=== PATIENT | female | born 1975 | race Caucasian/White ===

== ENCOUNTER 2023-08-29 14:25 | Outpatient (CLI) | payer BC | END 2023-08-29 14:26 | disposition home or self-care (01) | LOC: BICMAMMO 14:25 | PROVIDERS: ATTEND Family Medicine | DX: N63.14 Unspecified lump in the right breast, lower inner quadrant (principal) | CPT/HCPCS: 76642; 77066; G0279 ==

== ENCOUNTER 2023-12-09 13:04 | Outpatient (CLI) | payer BC ==
[2023-12-09 14:19] LABS: #Basophils Less than 0.03 10x3/uL (0.0-0.2); %Basophils 0.2 % (0.0-1.0); %Eosinophils 2.3 % (0.0-10.0); %Lymphocytes 32.6 % (21.0-51.0); %Monocytes 6.7 % (0.0-10.0); %Neutrophils 57.9 % (42.0-75.0); Hematocrit 42.3 % (36.0-47.0); Hemoglobin 14.6 g/dL (12.0-16.0); Mean Corpuscular HGB CONC 34.5 g/dL (32.0-36.0); Mean Corpuscular Hemoglobin 31.4 pg (27.0-31.0); Mean Platelet Volume 10.7 fL (7.4-10.4); Platelet Count 228 10x3/uL (130-400); RBC Distribution Width 13.1 % (11.5-14.5); Red Blood Cell (RBC) Count 4.65 mill/uL (4.20-5.40)
== END 2023-12-09 13:05 | disposition home or self-care (01) ==
LOC: LABBT 13:04
PROVIDERS: ATTEND Orthopaedic Surgery Hand Surgery
DX: Z01.812 Encounter for preprocedural laboratory examination (principal); G56.03 Carpal tunnel syndrome, bilateral upper limbs
CPT/HCPCS: 85025

== ENCOUNTER 2023-12-13 08:34 | Day surgery (SDC) | payer BC ==
[2023-12-09 13:25] VITALS: BMI 49.2
[2023-12-13] MEDS ORDERED: Bupivacaine PF 0.5% 30 ML VIAL ONE (08:51)
[2023-12-13] MEDS ORDERED: Bacitracin Zinc Ointment 30 gm TUBE ONE (08:51)
[2023-12-13] MEDS ORDERED: PROPOFOL 20 ML ONE (09:06)
[2023-12-13] MEDS ORDERED: Ondansetron PF 4 MG/2 ML Vial ONE (09:06)
[2023-12-13] MEDS ORDERED: Dexamethasone 20 MG/5 ML VIAL ONE (09:06)
[2023-12-13] MEDS ORDERED: fentaNYL PF 100 MCG/2 ML SYRINGE ONE (09:06)
[2023-12-13] MEDS ORDERED: Lidocaine 1% PF 5 ML VIAL ONE (09:06)
[2023-12-13] MEDS ORDERED: Sodium Chloride 0.9% 100 ML ONE (09:34)
[2023-12-13] MEDS ORDERED: CEFAZOLIN 2 GM VIAL ONE (09:34)
[2023-12-13] MEDS ORDERED: Ketorolac Tromethamine 30 MG (1 mL) VIAL ONE (11:07)
[2023-12-13] MEDS ORDERED: hydrALAZINE 20 MG/ML VIAL ONE (11:08)
== END 2023-12-13 14:16 | disposition home or self-care (01) ==
LOC: SDC 08:34
PROVIDERS: ATTEND Orthopaedic Surgery Hand Surgery
PROC: 01N50ZZ Release Median Nerve, Open Approach (ICD-10-PCS; principal; 2023-12-13)
DX: G56.03 Carpal tunnel syndrome, bilateral upper limbs (principal); E11.9 Type 2 diabetes mellitus without complications; Z79.84 Long term (current) use of oral hypoglycemic drugs; Z79.899 Other long term (current) drug therapy
CPT/HCPCS: A6223; J0360; J0665; J1100; J1885; J2405; J2704

== ENCOUNTER 2024-01-20 16:06 | Outpatient (CLI) | payer BC ==
[2024-01-20 17:21] LABS: #Basophils 0.03 10x3/uL (0.0-0.2); %Basophils 0.2 % (0.0-1.0); %Eosinophils 1.9 % (0.0-10.0); %Lymphocytes 32.8 % (21.0-51.0); %Monocytes 5.8 % (0.0-10.0); %Neutrophils 59.1 % (42.0-75.0); Hematocrit 45.2 % (36.0-47.0); Hemoglobin 15.3 g/dL (12.0-16.0); Mean Corpuscular HGB CONC 33.8 g/dL (32.0-36.0); Mean Corpuscular Hemoglobin 30.6 pg (27.0-31.0); Mean Corpuscular Volume 90.4 fL (78.0-98.0); Mean Platelet Volume 10.8 fL (7.4-10.4); Platelet Count 211 10x3/uL (130-400)
== END 2024-01-20 16:07 | disposition home or self-care (01) ==
LOC: LABBT 16:06
PROVIDERS: ATTEND Orthopaedic Surgery Hand Surgery
DX: Z01.812 Encounter for preprocedural laboratory examination (principal); G56.03 Carpal tunnel syndrome, bilateral upper limbs
CPT/HCPCS: 85025

== ENCOUNTER 2024-01-24 08:50 | Day surgery (SDC) | payer BC ==
[2024-01-20 16:15] VITALS: BMI 49.2
[2024-01-24] MEDS ORDERED: Bupivacaine PF 0.5% 30 ML VIAL ONE (09:19)
[2024-01-24] MEDS ORDERED: Bacitracin Zinc Ointment 30 gm TUBE ONE (09:19)
[2024-01-24] MEDS ORDERED: Ketamine In 0.9 % NaCl 50 MG/5 ML SYRINGE ONE (09:26)
[2024-01-24] MEDS ORDERED: CEFAZOLIN 2 GM VIAL ONE (09:37)
[2024-01-24] MEDS ORDERED: fentaNYL PF 100 MCG/2 ML SYRINGE ONE (09:45)
[2024-01-24] MEDS ORDERED: Glycopyrrolate 0.2 MG/ML 5 ML SYRINGE ONE (09:45)
[2024-01-24] MEDS ORDERED: Ketorolac Tromethamine 30 MG (1 mL) VIAL ONE (10:03)
[2024-01-24] MEDS ORDERED: HYDROcodone/Acetaminophen 5/325 mg Tablet ONE (10:35)
[2024-01-24] MEDS ORDERED: Propofol 500 MG/50 ML VIAL ONE (10:49)
[2024-01-24] MEDS ORDERED: Propofol 1,000 MG/100 ML VIAL IV ONE (10:50)
== END 2024-01-24 13:39 | disposition home or self-care (01) ==
LOC: SDC 08:50
PROVIDERS: ATTEND Orthopaedic Surgery Hand Surgery
PROC: 01N50ZZ Release Median Nerve, Open Approach (ICD-10-PCS; principal; 2024-01-24)
DX: G56.03 Carpal tunnel syndrome, bilateral upper limbs (principal); I10 Essential (primary) hypertension; E11.9 Type 2 diabetes mellitus without complications; G47.33 Obstructive sleep apnea (adult) (pediatric); Z90.710 Acquired absence of both cervix and uterus; Z90.49 Acquired absence of other specified parts of digestive tract; Z87.59 Personal history of other complications of pregnancy, childbirth and the puerperium; Z98.890 Other specified postprocedural states; Z79.84 Long term (current) use of oral hypoglycemic drugs; Z79.2 Long term (current) use of antibiotics; Z79.899 Other long term (current) drug therapy
CPT/HCPCS: A6223; J0665; J1885; J2704; J3490